=== PATIENT | female | born 1960 ===

== ENCOUNTER 2018-01-08 07:00 | Outpatient (CLI) | payer OTHER ==
[~2018-01-08 07:00] MED LIST: CIPRO500 MG PO; RELAGESIC TABL1 EACH PO
[2018-01-08] MEDS ORDERED: CARDIZEM CD180 MG PO (13:41)
[2018-01-08] MEDS ORDERED: SYNTHROID137 MCG PO (13:42)
[2018-01-08] MEDS ORDERED: ZOCOR5 MG PO (13:42)
[2018-01-08] MEDS ORDERED: HYZAAR 50-12.51 EACH PO (13:42)
[2018-01-08] MEDS ORDERED: LASIX20 MG PO (13:43)
[2018-01-08] MEDS ORDERED: SINGULAIR10 MG PO (13:43)
[2018-01-08] MEDS ORDERED: LANTUS SOL100 UNIT/1 (13:43)
[2018-01-08] MEDS ORDERED: METFORMIN HCL500 MG PO (13:44)
[2018-01-08] MEDS ORDERED: ZANTAC150 MG PO (13:44)
[2018-01-08] MEDS ORDERED: GABAPENTIN300 MG PO (13:44)
== END 2018-01-08 10:00 | disposition home or self-care (01) ==
LOC: EKG 07:00 → CIR.AMB 07:00 → EKG 10:00 → CIR.AMB 01-10 11:46 → EDSTATUS 01-10 17:15 → CIR.AMB 01-10 17:15
DX: N95.0 Postmenopausal bleeding (principal); Z01.810 Encounter for preprocedural cardiovascular examination